=== PATIENT | female | born 1955 | race Caucasian/White ===

== ENCOUNTER 2016-11-03 15:43 | Emergency (ER) | payer MEDICAID ==
[~2016-11-03] VITALS: Ht 167.6 cm; Wt 106.6 kg
[2016-11-03] MEDS ORDERED: ALBU18HF INH (17:10)
[2016-11-03] MEDS ORDERED: ZOLP-413 PO (17:10)
[2016-11-03 19:15] VITALS: BP 118/68
== END 2016-11-03 19:17 | disposition home or self-care (01) ==
LOC: ED 17:21
DX: J44.9 Chronic obstructive pulmonary disease, unspecified (principal); J20.9 Acute bronchitis, unspecified; F17.200 Nicotine dependence, unspecified, uncomplicated; F12.10 Cannabis abuse, uncomplicated
CPT/HCPCS: 71010; 93005; 99284

== ENCOUNTER 2017-02-05 15:41 | Emergency (ER) | payer MEDICAID ==
[~2017-02-05] VITALS: Ht 165.1 cm; Wt 108.5 kg
[~2017-02-05 15:41] MED LIST: ALBU18HF INH; ZOLP-413 PO
[2017-02-05 15:43] VITALS: BP 148/87
[2017-02-05] MEDS ORDERED: LIDOCAINE 1%, 20ML SQ ONE (16:00)
[2017-02-05] MEDS ORDERED: DIPH,PERTUSS(ACELL),TET VAC/PF 0.5 ML IM-VACC ONE ×2 (16:00→16:27)
[2017-02-05] MEDS ORDERED: KETOROLAC 30 MG/1 ML ONE (16:26)
[2017-02-05] MEDS ORDERED: LIDOCAINE 1%, 20ML ONE (16:27)
[2017-02-05] MEDS ORDERED: KETOROLAC 30 MG/1 ML IM ONE (16:30)
== END 2017-02-05 17:11 | disposition home or self-care (01) ==
LOC: ED 16:27
DX: S01.01XA Laceration without foreign body of scalp, initial encounter (principal); G89.11 Acute pain due to trauma; M25.511 Pain in right shoulder; J44.9 Chronic obstructive pulmonary disease, unspecified; Z87.891 Personal history of nicotine dependence; W10.9XXA Fall (on) (from) unspecified stairs and steps, initial encounter; Y93.89 Activity, other specified; Y92.098 Other place in other non-institutional residence as the place of occurrence of the external cause; Y99.8 Other external cause status
CPT/HCPCS: 12002; 73030; 90471; 90715; 96372; 99284; J1885

== ENCOUNTER 2017-02-13 10:51 | Emergency (ER) | payer MEDICAID ==
[~2017-02-13] VITALS: Ht 165.1 cm; Wt 110.3 kg
[2017-02-13] MEDS ORDERED: DIPHENHYDRAMINE 50 MG/ML, 1ML IVPush ONE (11:30)
[2017-02-13] MEDS ORDERED: METOCLOPRAMIDE 5 MG/ML, 2ML IVPush ONE (11:30)
[2017-02-13] MEDS ORDERED: DIAZEPAM 5 MG/ML, 10ML VIAL IV ONE (11:30)
[2017-02-13] MEDS ORDERED: SODIUM CHLORIDE FLUSH 10ML SYR IVF ONE (11:30)
[2017-02-13] MEDS ORDERED: DIAZEPAM 5 MG/ML, 2ML ONE (11:33)
[2017-02-13] MEDS ORDERED: DIPHENHYDRAMINE 50 MG/ML, 1ML ONE (11:33)
[2017-02-13] MEDS ORDERED: METOCLOPRAMIDE 5 MG/ML, 2ML ONE (11:33)
[2017-02-13 11:36] LABS: HEMATOCRIT 42.5 % (34.6-47.8); HEMOGLOBIN 14.3 g/dL (11.7-16.4); WHITE BLOOD COUNT 7.7 x10^3/uL (3.4-10)
[2017-02-13] MEDS ORDERED: HYDROmorphone 1 MG/ML, 1ML ONE (11:46)
[2017-02-13 11:47] LABS: BLOOD UREA NITROGEN 11 mg/dL (7-18)
[2017-02-13] MEDS ORDERED: BUTA1CAP59 PO (11:49)
[2017-02-13 11:55] LABS: IS PT STATUS REG ER OR PRE ER? YES
[2017-02-13] MEDS ORDERED: HYDROmorphone 1 MG/ML, 1ML IM ONE (12:00)
[2017-02-13 13:07] VITALS: BP 132/80
== END 2017-02-13 13:10 | disposition home or self-care (01) ==
LOC: ED 12:05
DX: S06.0X0A Concussion without loss of consciousness, initial encounter (principal); G43.909 Migraine, unspecified, not intractable, without status migrainosus; G44.309 Post-traumatic headache, unspecified, not intractable; J44.9 Chronic obstructive pulmonary disease, unspecified; Z87.891 Personal history of nicotine dependence; W01.198A Fall on same level from slipping, tripping and stumbling with subsequent striking against other object, initial encounter; Y93.89 Activity, other specified; Y92.89 Other specified places as the place of occurrence of the external cause; Y99.8 Other external cause status
CPT/HCPCS: 36415; 70450; 71010; 72125; 80048; 82040; 84484; 85025; 93005; 96372; 99285; J1170